=== PATIENT | female | born 1965 | race Caucasian/White ===

== ENCOUNTER 2016-08-17 19:22 | Emergency (ER) | payer MEDICARE, MEDICAID ==
[~2016-08-17] VITALS: Ht 157.5 cm; Wt 72.6 kg
[2016-08-17 19:42] VITALS: BP 125/82
== END 2016-08-18 00:09 | disposition left against medical advice (07) ==
LOC: ER 19:22
DX: M79.642 Pain in left hand (principal); M79.641 Pain in right hand; Z53.21 Procedure and treatment not carried out due to patient leaving prior to being seen by health care provider

== ENCOUNTER 2016-11-25 13:55 | Emergency (ER) | payer MEDICARE, MEDICAID ==
[~2016-11-25] VITALS: Ht 154.9 cm; Wt 77.1 kg
[2016-11-25 14:10] VITALS: BP 143/103
[2016-11-25] MEDS ORDERED: SILVER SULFADIAZINE 1 % TOPICAL CREAM 50GM TOP ONE (14:30)
== END 2016-11-25 14:47 | disposition home or self-care (01) ==
LOC: ER 13:55
DX: T22.111A Burn of first degree of right forearm, initial encounter (principal); T31.0 Burns involving less than 10% of body surface; M19.90 Unspecified osteoarthritis, unspecified site; F17.210 Nicotine dependence, cigarettes, uncomplicated; Z98.51 Tubal ligation status; Z90.49 Acquired absence of other specified parts of digestive tract; X11.8XXA Contact with other hot tap-water, initial encounter; Y93.89 Activity, other specified; Y99.8 Other external cause status; Y92.89 Other specified places as the place of occurrence of the external cause
CPT/HCPCS: 16000

== ENCOUNTER 2017-11-03 01:41 | Emergency (ER) | payer MEDICARE, MEDICAID ==
[~2017-11-03] VITALS: Ht 162.6 cm; Wt 81.6 kg
[2017-11-03 01:47] VITALS: BP 138/76
== END 2017-11-03 02:26 | disposition left against medical advice (07) ==
LOC: ER 01:41 → EDBD 01:41 → ER 02:26
DX: R07.9 Chest pain, unspecified (principal); Z53.21 Procedure and treatment not carried out due to patient leaving prior to being seen by health care provider
CPT/HCPCS: 93005

== ENCOUNTER 2018-02-09 11:14 | Emergency (ER) | payer MEDICARE, MEDICAID ==
[~2018-02-09] VITALS: Ht 165.1 cm; Wt 90.7 kg
[2018-02-09 12:05] LABS: Basophils # (auto) 0.1 uL; Eosinophils # (auto) 0.2 uL; Eosinophils % (auto) 3.4 % (0.0-7.0); Hematocrit 40.9 % (36.0-46.0); Hemoglobin 13.6 g/dL (12.2-16.2); Lymphocytes # (auto) 2.3 uL; Lymphocytes % (auto) 34.5 % (10.0-50.0); Mean Corpuscular Hemoglobin 30.7 pg (28.0-32.0); Mean Corpuscular Hgb Conc. 33.2 g/dL (32.0-36.0); Mean Corpuscular Volume 92.3 fL (80.0-100.0); Monocytes # (auto) 0.5 uL; Neutrophils # (auto) 3.6 uL; Neutrophils % (auto) 53.1 % (37.0-80.0); Platelet Count (auto) 219 10^3/uL (140-450); Red Blood Cells 4.43 10^6/uL (4.0-5.20); Red Cell Distribution Width 13.8 % (11.8-14.3); White Blood Cell 6.8 10^3/uL (4.4-10.8)
[2018-02-09] MEDS ORDERED: FLUMAZENIL 0.1 MG/ML INJ 10ML MDV IV ONE (12:15)
[2018-02-09 12:19] LABS: INR 0.91 (0.9-1.15); Partial Thromboplastin Time 27.6 sec (23.78-33.04); Prothrombin Time 9.8 sec (9.27-12.13)
[2018-02-09 12:25] LABS: Alanine Aminotransferase 39 U/L (13-56); Albumin 3.5 g/dL (3.4-5.0); Alkaline Phosphatase 105 U/L (45-117); Anion Gap 6 (5-15); Aspartate Aminotransferase 18 U/L (15-37); BUN/Creatinine Ratio 32.6; Bilirubin, Total 0.2 mg/dL (0.2-1.0); Blood Alcohol < 3.0 mg/dL (0-5); Blood Urea Nitrogen 28 mg/dL (7-18); Calcium 8.5 mg/dL (8.5-10.1); Carbon Dioxide 27 mmol/L (21-32); Chloride 109 mmol/L (98-107); GFR African American 90 mL/min; GFR Non-African American 74 mL/min; Glucose 97 mg/dL (74-106); Potassium 3.7 mmol/L (3.5-5.1); Sodium 142 mmol/L (136-145); Total Protein 6.9 g/dL (6.4-8.2)
[2018-02-09 14:09] VITALS: BP 117/59
== END 2018-02-09 14:57 | disposition left against medical advice (07) ==
LOC: EDBD 11:14 → ER 11:14 → EDUNIT# 11:14 → ER 14:57
DX: G93.41 Metabolic encephalopathy (principal); I10 Essential (primary) hypertension
CPT/HCPCS: 36415; 70450; 80053; 80320; 84484; 85025; 85610; 85730; 93005; 96374

== ENCOUNTER 2018-05-09 17:19 | Emergency (ER) | payer MEDICARE, MEDICAID ==
[~2018-05-09] VITALS: Ht 157.5 cm; Wt 74.8 kg
[2018-05-09 17:35] VITALS: BP 140/84
== END 2018-05-09 18:37 | disposition left against medical advice (07) ==
LOC: ER 17:28
DX: R07.81 Pleurodynia (principal); Z53.21 Procedure and treatment not carried out due to patient leaving prior to being seen by health care provider

== ENCOUNTER 2022-12-29 21:56 | Emergency (ER) | payer MEDICARE, MEDICAID ==
[~2022-12-29] VITALS: Ht 154.9 cm; Wt 80.3 kg
[2022-12-29 22:05] VITALS: BP 142/86; PULSE 105; RESP 16; O2SAT 99
[2022-12-29] MEDS ORDERED: TETANUS-DIPTH-ACEL PERTUSSIS 0.5ML SYR Tdap IM ONE (22:15)
[2022-12-29 22:30] LABS: Eosinophils # (auto) 0.2 10 ^3/uL (0-0.8); Hemoglobin 13.7 g/dL (12.2-16.2); Nucleated Red Blood Cells % 0.1 %; White Blood Cell 7.3 10^3/uL (4.4-10.8)
[2022-12-29 22:34] LABS: Basophils # (auto) 0.1 10 ^3/uL (0-0.2); Basophils % (auto) 0.8 % (0.0-2.0); Eosinophils % (auto) 2.8 % (0.0-7.0); Hematocrit 41.4 % (36.0-46.0); Lymphocytes # (auto) 2.6 10 ^3/uL (0.4-5.4); Lymphocytes % (auto) 35.5 % (10.0-50.0); Mean Corpuscular Hemoglobin 30.1 pg (28.0-32.0); Mean Corpuscular Hgb Conc. 33.1 g/dL (32.0-36.0); Mean Corpuscular Volume 90.9 fL (80.0-100.0); Monocytes # (auto) 0.6 10 ^3/uL (0-1.3); Monocytes % (auto) 7.9 % (0.0-12.0); Neutrophils # (auto) 3.9 10 ^3/uL (1.6-8.6); Red Blood Cells 4.56 10^6/uL (4.0-5.20); Red Cell Distribution Width 14.2 % (11.8-14.3)
[2022-12-29 22:46] LABS: Albumin 3.5 g/dL (3.4-5.0); Calcium 8.8 mg/dL (8.5-10.1); Potassium 4.1 mmol/L (3.5-5.1)
[2022-12-29 22:49] LABS: BUN/Creatinine Ratio 28.4 (10.0-20.0); Bilirubin, Total 0.2 mg/dL (0.2-1.0); Total Protein 7.2 g/dL (6.4-8.2)
== END 2022-12-29 23:05 | disposition home or self-care (01) ==
LOC: ER 21:58
DX: S40.261D Insect bite (nonvenomous) of right shoulder, subsequent encounter (principal); F41.9 Anxiety disorder, unspecified; I10 Essential (primary) hypertension; W57.XXXD Bitten or stung by nonvenomous insect and other nonvenomous arthropods, subsequent encounter
CPT/HCPCS: 36415; 80053; 85025; 90471; 90715

== ENCOUNTER 2023-08-16 09:50 | Emergency (ER) | payer MEDICAID ==
[~2023-08-16] VITALS: Ht 154.9 cm; Wt 76.4 kg
[2023-08-16 10:07] VITALS: BP 133/84; PULSE 99; RESP 18; O2SAT 98
== END 2023-08-16 11:40 | disposition left against medical advice (07) ==
LOC: ER 09:50
DX: M79.606 Pain in leg, unspecified (principal); Z53.21 Procedure and treatment not carried out due to patient leaving prior to being seen by health care provider

== ENCOUNTER 2024-02-19 16:16 | Emergency (ER) | payer MEDICAID ==
[~2024-02-19] VITALS: Ht 154.9 cm; Wt 75.0 kg
[2024-02-19 17:27] LABS: Basophils # (auto) 0.1 10 ^3/uL (0-0.2); Basophils % (auto) 0.9 % (0.0-2.0); Eosinophils # (auto) 0.1 10 ^3/uL (0-0.8); Eosinophils % (auto) 1.6 % (0.0-7.0); Hematocrit 43.2 % (36.0-46.0); Hemoglobin 14.6 g/dL (12.2-16.2); Lymphocytes # (auto) 1.9 10 ^3/uL (0.4-5.4); Lymphocytes % (auto) 21.2 % (10.0-50.0); Mean Corpuscular Hgb Conc. 33.9 g/dL (32.0-36.0); Mean Corpuscular Volume 91.4 fL (80.0-100.0); Monocytes # (auto) 0.6 10 ^3/uL (0-1.3); Monocytes % (auto) 7.3 % (0.0-12.0); Platelet Count (auto) 214 10^3/uL (140-450); Red Blood Cells 4.72 10^6/uL (4.0-5.20); Red Cell Distribution Width 13.6 % (11.8-14.3); White Blood Cell 8.8 10^3/uL (4.4-10.8)
[2024-02-19 17:34] LABS: Chloride 110 mmol/L (98-107); Potassium 3.9 mmol/L (3.5-5.1); Sodium 142 mmol/L (136-145)
[2024-02-19 17:35] LABS: Anion Gap 7 (5-15); Calcium 9.7 mg/dL (8.7-10.4); Carbon Dioxide 25 mmol/L (20-31)
[2024-02-19 17:40] LABS: BUN/Creatinine Ratio 31.7 (10.0-20.0); Blood Urea Nitrogen 26 mg/dL (9-23); Glucose 102 mg/dL (74-106)
[2024-02-19 18:00] VITALS: PULSE 94; RESP 20; O2SAT 95
[2024-02-19] MEDS: IOHEXOL 300 MG/ML 100ML BOTTLE IJ ONE (18:23)
[2024-02-19 19:10] VITALS: BP 113/75; PULSE 95; RESP 23; TEMP 98.2; O2SAT 97
== END 2024-02-19 20:02 | disposition home or self-care (01) ==
LOC: ER 16:30
DX: S09.8XXA Other specified injuries of head, initial encounter (principal); I10 Essential (primary) hypertension; F17.210 Nicotine dependence, cigarettes, uncomplicated; R07.81 Pleurodynia; V43.52XA Car driver injured in collision with other type car in traffic accident, initial encounter; Y93.89 Activity, other specified; Y92.488 Other paved roadways as the place of occurrence of the external cause; Y99.8 Other external cause status
CPT/HCPCS: 36415; 70450; 71260; 74177; 80048; 85025; 99285; Q9967

== ENCOUNTER 2024-05-17 16:06 | Emergency (ER) | payer MEDICAID ==
[~2024-05-17] VITALS: Ht 157.5 cm; Wt 72.0 kg
[2024-05-17] MEDS ORDERED: ALPRAZolam 0.5 MG TAB PO ONE (16:15)
[2024-05-17 16:23] VITALS: BP 117/68; PULSE 136; RESP 20; O2SAT 98
--- NOTE | 2024-05-17 16:56 | DVH ---
EXAM: XY CHEST PORTABLE Indication: sob Technique: Single frontal view of the chest was obtained Comparison: None FINDINGS: Lines and Tubes: None Lungs: No focal consolidation. Pleura: No effusion. No pneumothorax. Cardiomediastinal contours: Unremarkable Bones: No acute osseous abnormality. IMPRESSION: No acute cardiopulmonary disease.
--- NOTE | 2024-05-17 16:58 | ED.PDOC ---
Psychiatric HPI Comments 58y F who presents to the ED for chief complaint of anxiety. Pt was in the ED parking lot and collapsed and pt boyfriend alerted staff and pt was brought for evaluation. Pt was noted short of breath and unable to answer questions stating "I cant breathe." Pt became cooperative after calming down and states she was having anxiety attack which exacerbated her symptoms. Pt in the ED, otherwise has noted 02 sat of 98% on room air with all other vitals in normal range. Pt denies any other symptoms at this time. 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 Family History Family History: Family hx of DM Social History Smoker: Cigarettes Lives In: Home Constitutional: denies: chills, diaphoresis, fatigue, fever, malaise, sweats, weakness, others EENTM: denies: blurred vision, double vision, ear bleeding, ear discharge, ear drainage, ear pain, ear ringing, eye pain, eye redness, hearing loss, mouth pain, mouth swelling, nasal discharge, nose bleeding, nose congestion, nose pain, photophobia, tearing, throat pain, throat swelling, voice changes, others Respiratory: reports: shortness of breath; denies: cough, hemoptysis, orthopnea, SOB at rest, SOB with excertion, stridor, wheezing, others Cardiovascular: denies: chest pain, dizzy spells, diaphoresis, Dyspnea on exertion, edema, irregular heart beat, left arm pain, lightheadedness, pal pitations, PND, syncope, others Gastrointestinal: denies: abdomen distended, abdominal pain, blood streaked bowels, constipated, diarrhea, dysphagia, difficulty swallowing, hematemesis, melena, nausea, poor appetite, poor fluid intake, rectal bleeding, rectal pain, vomiting, others Genitourinary: denies: abnormal vagina bleeding, burning, dyspareunia, dysuria, flank pain, frequency, hematuria, incontinence, pain, , vagina discharge, urgency, others Neurological: denies: dizziness, fainting, headache, left sided numbness, left sided weakness, numbness, paresthesia, pre-existing deficit, right sided numbness, right sided weakness, seizure, speech problems, tingling, tremors, weakness, others Musculoskeletal: denies: back pain, gout, joint pain, joint swelling, muscle pain, muscle stiffness, neck pain, others Integumetry: denies: bruises, change in color, change in hair/nails, dryness, laceration, lesions, lumps, rash, wounds, others Allergic/Immunocompromised: denies: Difficulty Healing, Frequent Infections, Hives, Itching, others Hematologic/Lymphatic: denies: anemia, blood clots, easy bleeding, easy b ruising, swollen glands, others Endocrine: denies: excessive hunger, excessive sweating, excessive thirst, excessive urination, flushing, intolerance to cold, intolerance to heat, unexplained weight gain, unexplained weight loss, others Psychiatric: reports: anxiety; denies: bipolar disorder, depression, hopeless, panic disorder, schizophrenia, sleepless, suicidal, others All Other Systems: Reviewed and Negative Physical Exam General Appearance: Mild Distress, Other (pt highly anxious, ) HEENT: Normal ENT Inspection, Pharynx Normal, TMs Normal Neck: Full Range of Motion, Non-Tender, Normal, Normal Inspection Respiratory: Chest Non-Tender, Lungs Clear, No Accessory Muscle Use, No Respiratory Distress, Normal Breath Sounds Cardiovascular: No Edema, No JVD, No Murmur, No Gallop, Normal Peripheral Pulses, Regular Rate/Rhythm Breast Exam: Deferred Gastrointestinal: No Organomegaly, Non Tender, No Pulsatile Mass, Normal Bowel Sounds, Soft Genitalia: Deferred Pelvic: Deferred Rectal: Deferred Extremities: No calf tenderness, Normal capillary refill, Normal inspection, Normal range of motion, Non-tender, No pedal edema Musculoskeletal : Apperance: Normal Neurologic: Alert, key attendant II-XII nml as Tested, No Motor Deficits, Normal Affect, Normal Mood, No Sensory Deficits Cerebellar Function: Normal Reflexes: Normal Skin: Dry, Normal Color, Warm Lymphatic: No Adenopathy Was a procedure done? Was a procedure done?: No Psych Differential Dx Psych. Differential Dx: Anxiety, Depression OD Differential Dx: Panic Disorder Intoxication Differential Dx: Encephalopathy X-Ray, Labs, Meds, VS Vital Signs Date Time Temp Pulse Resp B/P (MAP) Pulse Ox O2 Delivery O2 Flow Rate FiO2 05/17/24 16:23 98.1 136 20 117/68 (84) 98 Time of 1ST Reevaluation: 17:30 Reevaluation 1ST: Unchanged Time of 2ND Reevaluation: 18:00 Reevaluation 2ND: Improved Patient Education/Counseling: Diagnosis, Treatment, Prognosis, Need For Follow Up Family Education/Counseling: No Family Present Additional Information - I reviewed the following notes from patient's past medical encounters: - The following tests were ordered, and results were reviewed by me: (Labs, X- Ray, EKG): CT head without contrast, EKG x1, drug screen, chest x-ray, - Additional information was gathered from interviewing the following independent Historian: (Family, Other Providers, EMT): boyfriend - I reviewed and agreed with the following test results read by other provider: (X-ray, CT, US): radiologist - I discussed treatments and results with medical personnel and: (consultants, family): none initially pt was not speaking, was writing in the air with her finger to communicate, but once calmed down, she was able to speak and reports she felt anxious Departure 1 Departure Time of Disposition: 18:40 Impression: Primary Impression: Panic attack Disposition: 01 HOME / SELF CARE / HOMELESS Condition: Good e-Prescriptions No Active Prescriptions or Reported Meds Discharged With: Self Critical Care Note Critical Care Time?: No Stability Stability form required: No Heart Score Heart Score: Heart Score Response (Comments) Value History N/A 0 EKG N/A 0 Age N/A 0 Risk Factors N/A 0 Troponin N/A 0 Total 0 I personally scribed for RICO PRINCE MD ([facility]) on 05/17/24 at 16:58. Electronically submitted by Laxmi FREEMAN). RICO PRINCE MD May 17, 2024 16:58
== END 2024-05-17 17:39 | disposition left against medical advice (07) ==
LOC: ER 16:06
DX: F41.0 Panic disorder [episodic paroxysmal anxiety] (principal); I10 Essential (primary) hypertension; F17.210 Nicotine dependence, cigarettes, uncomplicated
CPT/HCPCS: 71045

== ENCOUNTER 2024-09-07 14:45 | Emergency (ER) | payer MEDICAID ==
[~2024-09-07] VITALS: Ht 154.9 cm; Wt 78.0 kg
[2024-09-07 15:00] VITALS: BP 116/79; RESP 18; TEMP 98.8; O2SAT 97
[2024-09-07 15:05] VITALS: PULSE 103
--- NOTE | 2024-09-07 15:10 | ECG ---
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
== END 2024-09-07 15:28 | disposition left against medical advice (07) ==
LOC: ER 14:45
DX: L60.0 Ingrowing nail (principal); Z79.899 Other long term (current) drug therapy; Z53.21 Procedure and treatment not carried out due to patient leaving prior to being seen by health care provider
CPT/HCPCS: 93005

== ENCOUNTER 2024-11-16 10:11 | Emergency (ER) | payer MEDICAID ==
[~2024-11-16] VITALS: Ht 157.5 cm; Wt 79.9 kg
[2024-11-16 10:30] VITALS: BP 133/75; PULSE 112; RESP 16; TEMP 99; O2SAT 96
== END 2024-11-16 11:12 | disposition left against medical advice (07) ==
LOC: ER 10:11
DX: M79.641 Pain in right hand (principal); Z53.21 Procedure and treatment not carried out due to patient leaving prior to being seen by health care provider